=== PATIENT | male | born 1970 | race Caucasian/White ===

== ENCOUNTER 2017-09-03 11:11 | Emergency (ER) | payer SELFPAY ==
[~2017-09-03] VITALS: Ht 172.7 cm; Wt 82.0 kg
[2017-09-03] MEDS ORDERED: IBUPROFEN 800MG TABLET PO ONE (15:45)
[2017-09-03 17:08] VITALS: BP 121/82
== END 2017-09-03 17:11 | disposition home or self-care (01) ==
LOC: ER 12:21
DX: K04.7 Periapical abscess without sinus (principal); F17.200 Nicotine dependence, unspecified, uncomplicated; F10.20 Alcohol dependence, uncomplicated
CPT/HCPCS: 99283